=== PATIENT | female | born 1990 | race Caucasian/White ===

== ENCOUNTER 2018-04-08 13:52 | Outpatient (CLI) | payer BC ==
--- NOTE | 2018-04-08 15:07 | RAD ---
LUMBAR SPINE 2 VIEWS: Date: 04/08/18 HISTORY: Inflammatory polyarthropathy. COMPARISON: None. FINDINGS: Mild levoscoliosis lumbar spine, approximately 23 degrees, measured at the inferior end plate of T11 and inferior end plate of L4. No abnormal calcifications project over the renal shadows. Right upper quadrant surgical clips. IMPRESSION: Moderate levoscoliosis. No acute abnormality. POS: [facility]
== END 2018-04-08 13:53 | disposition home or self-care (01) ==
LOC: BICRAD 13:52
PROVIDERS: ATTEND Internal Medicine Rheumatology
DX: M06.4 Inflammatory polyarthropathy (principal); M41.9 Scoliosis, unspecified
CPT/HCPCS: 72100

== ENCOUNTER 2018-06-08 15:37 | Outpatient (CLI) | payer BC ==
[~2018-06-08 15:37] MED LIST: Gadobenate Dimeglumine 529 MG/1 ML (20ML VIAL) ONE
--- NOTE | 2018-06-08 17:19 | MRI ---
MRI BRAIN WITH AND WITHOUT CONTRAST: Date: 06/08/18 HISTORY: R20.2, paresthesia of skin. Weakness. COMPARISON: None FINDINGS: On the diffusion-weighted imaging sequences, there are no abnormal areas of diffusion restriction. Th is was confirmed on the ADC map. On the susceptibility weighted imaging sequence, no abnormal areas of hemorrhage. Corpus callosum is normal. The cerebellar tonsils terminate at the level of the foramen magnum. Marro w signal of clivus and upper cervical spine is normal. No abnormal enhancing mass. Globes are normal. IMPRESSION: Normal MRI of the brain. POS: [facility]
== END 2018-06-08 15:38 | disposition home or self-care (01) ==
LOC: MRI 15:37
PROVIDERS: ATTEND Psychiatry & Neurology Neurology
DX: R20.2 Paresthesia of skin (principal)
CPT/HCPCS: 70553; A9577